=== PATIENT | female | born 1980 | race Caucasian/White ===

== ENCOUNTER 2022-06-24 14:23 | Emergency (ER) | payer SELFPAY ==
[2022-06-24] VITALS (9 sets, daily range): BP systolic 105–141; BP diastolic 67–92; PULSE 74–108; RESP 14–23; TEMP -17.7–36.5; O2SAT 98–100; BMI 24.7
--- NOTE | 2022-06-24 14:26 | CT_ITS ---
We are attempting to reach an attending provider to discuss findings. An addendum with communication details will be sent when the communication is complete. INDICATION: Neuro deficit, acute, stroke suspected EXAMINATION: CT BRAIN WITH CONTRAST TECHNIQUE: Noncontrast axial images were obtained of the brain. Subsequently, routine carotid CT angiogram protocol was performed without and with IV contrast. In addition, images were obtained of the [place]. NASCET criteria using the distal ICAs for comparison were used for evaluation of stenoses. 3D reconstructions were reviewed. A radiation dose optimization technique was used for this scan. IV Contrast dosage and agent: COMPARISON: None. FINDINGS: --CT BRAIN: BRAIN PARENCHYMA: No intra- or extra-axial hemorrhage. No evidence of acute infarct. No intracranial mass or mass effect. There is preservation of the vidales/white matter interface. Posterior fossa structures are unremarkable. CSF SPACES: Appropriate for age. No hydrocephalus. Basal cisterns are patent. CALVARIUM, SKULL BASE, PARANASAL SINUSES AND MASTOID AIR CELLS: Clear. No discrete lytic or blastic abnormalities. ASPECTS Score for Acute Strokes: 10 --CTA NECK: AORTIC ARCH AND BRANCHES: Normal anatomy, patent. RIGHT CCA: No occlusion, significant stenosis or dissection. RIGHT ICA: No occlusion, significant stenosis or dissection. LEFT CCA: No occlusion, significant stenosis or dissection. LEFT ICA: No occlusion, significant stenosis or dissection. RIGHT VERTEBRAL ARTERY: No occlusion, significant stenosis or dissection. LEFT VERTEBRAL ARTERY: No occlusion, significant stenosis or dissection. NECK SOFT TISSUES: Unremarkable. --CTA HEAD: --Anterior circulation: ICAs: No significant stenosis at the intracranial/visualized segments. ACAs: No significant stenosis at the visualized segments. ACOM: Present. MCAs: No significant stenosis at the visualized segments. --Posterior circulation: PCOMs: Within normal limits insurance office supervisor: No significant stenosis at the visualized segments. BASILAR ARTERY: No significant stenosis. VERTEBRAL ARTERIES: No significant stenosis at the intradural/visualized segments. No evidence of intracranial aneurysm or vascular malformation. CT/STROKE CTA Head AND Neck W/Con IMPRESSION: Within normal limits CT Brain, CTA Carotid, and CTA Brain. Electronically Signed: Shyann Parker MD at 15:01 EDT ,
--- NOTE | 2022-06-24 14:26 | CT_ITS ---
INDICATION: Neuro deficit, acute, stroke suspected EXAMINATION: CT BRAIN - CT Head Stroke Protocol W/O Contrast Injection TECHNIQUE: Multiple axial images were obtained of the head without intravenous contrast. A radiation dose optimization technique was used for this scan. IV Contrast dosage and agent: None. RADIATION DOSAGE (If Supplied By Facility): CTDIvol = ( ) mGy, DLP = ( ) mGycm COMPARISON: FINDINGS: BRAIN PARENCHYMA: No intra- or extra-axial hemorrhage. No evidence of acute infarct. No intracranial mass or mass effect. There is preservation of the vidales/white matter interface. Posterior fossa structures are unremarkable. CSF SPACES: Appropriate for age. No hydrocephalus. Basal cisterns are patent. CALVARIUM, SKULL BASE, PARANASAL SINUSES AND MASTOID AIR CELLS: Clear. No discrete lytic or blastic abnormalities. ORBITS: Both globes, extraocular muscles, optic nerves and retrobulbar fat appear unremarkable. ASPECTS Score for Acute Strokes: 10 CT/STROKE Brain/Head without Cont IMPRESSION: No acute intracranial process. High within the celiac head CT demonstrates no acute intracranial process N.B. : The above Results were Read Back by Shyann Parker MD to Rivas Le DO, and understanding confirmed on 06/24/2022 14:47:21 (ET). Electronically Signed: Shyann Parker MD at 14:48 EDT ,
--- NOTE | 2022-06-24 14:26 | EKG12_ITS ---
Test Reason : Blood Pressure : / mmHG Vent. Rate : 098 BPM Atrial Rate : 098 BPM P-R Int : 172 ms QRS Dur : 078 ms QT Int : 366 ms P-R-T Axes : 072 072 060 degrees QTc Int : 467 ms Normal sinus rhythm Nonspecific ST abnormality Abnormal ECG Confirmed by JAYLA MURRAY, ROBSON ([id number]), editor greeting card CHASITY JETT ([id number]) on 06/26/2022 8:12:42 AM Referred By: PARTHA Confirmed By:ROBSON DICKERSON MD
--- NOTE | 2022-06-24 14:28 | EX.ED.DYSGE1 ---
HPI History of Present Illness Chief Complaint: Stroke Alert Detail of Chief Complaint: Right-sided NOBLE/migraine. Stroke alert was called to error on the side. Informant: patient and spouse/S.O. Narrative Narrative: Patient is a 41-year-old female who is presenting to the ER with chief complaint patient's headache was not the worse headache of her life, not sudden onset, not thunderclap in nature., Difficulty/slurred speech, not moving the right arm or leg much. Patient went to [employer]ecost[employer]ism with her , they got back home. Patient was last seen normal at 1 PM. Patient was not initially speaking much when she arrived by EMS, most of the history was given by EMS staff. Stroke alert was called to error on the side of caution, patient was taken to CT for a CT of the head and a CTA of the head neck. While patient was in CT, provided more history, see [facility] for more detail. Patient's had no recent fall, no trauma. Patient does have a history of headaches and migraines, she normally get a headache once every few months. Patient takes no prescribed medications, no blood thinners. Patient had minimal flulike symptoms today, did not go to [employer] when they arrived from a car drive home from [place], patient was dropped off at home and children went to [employer]ec[employer]. They came home around 1:00 and patient was not feeling better, difficulty walking, hyperventilating, numbness and tingling to her arms and legs, EMS was called to the ER in the setting caution. No heart history. No history of diabetes. Patient's sugar was normal for EMS staff. [facility] History no medical history Allergy/AdvReac Type Severity Reaction Status Date / Time No Known Allergies Allergy Verified 06/24/22 14:43 Surgical History no surgical history Social History Smoking Status: Never smoker ROS ROS ED ROS Narrative REVIEW OF SYSTEMS: Unless otherwise stated in this report the patient's positive and negative responses for review of systems for constitutional, eyes, ENT, cardiovascular, respiratory, gastrointestinal, neurological, , musculoskeletal, and integument systems and related systems to the presenting problem are either stated in the history of present illness or were not pertinent or were negative for the symptoms and/or complaints related to the presenting medical problem. EXAM Physical Exam Narrative Exam Narrative: Vital signs reviewed and patient is not hypoxic. General: The patient appears mild to moderate distress secondary to somnolent, hyperventilating, possible strokelike signs and symptoms that seem to already have improved from home to the hospital.. Patient is resting uncomfortably on cart. Not toxic, lethargic, or listless. Skin: Warm, dry, no pallor noted. There is no rash noted. Head: Normocephalic, atraumatic; no tenderness to palpation to bilateral temples. No scalp hematoma. No midline or paracervical tenderness palpation to cervical spine Eye: Normal conjunctiva, no drainage, EOMI. PERRL. Ears, Nose, Mouth, and Throat: oral mucosa is moist. Nares patent. Mouth without vesicles. Ear canals patent. Tm's without Erythema Cardiovascular: Regular Rate and Rhythm, no murmurs, gallops, or rubs Respiratory: Patient is in mild respiratory distress with hyperventilating,, no accessory muscle use, lungs are clear to auscultation, no wheezing, rales or rhonchi Back: non-tender, no CVA tenderness bilaterally to percussion. NO CTLS midline or paracervicl tenderness to palpation. GI: Soft, stretch [place], no tenderness to palpation, no masses appreciated. No rebound, guarding, or rigidity noted. 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 EMS stated the patient was not using her right arm or leg; questionable whether that was effort or true exam. Patient is appearing diffusely weak, Neurological: A&O x4, soft pressured speech. Patient is hyperventilating, effort is poor, difficult to perform true and complete NIH scale initially when patient arrived. Patient knows her name, knows her age and month. Patient is following commands. No facial droop, tongue midline. Patient has carpopedal spasm equal, bilateral. Patient has diffuse weakness in her arms, complaining of muscle spasms arms and legs. No significant signs of slurred speech, facial droop, or expressive aphasia. No garbled speech. Patient is complaining of a headache to the right forehead, behind her right eye that is typical of her headaches and migraines in the past Psychiatric: Cooperative Const Vital Signs: 06/24/22 14:25 06/24/22 14:23 06/24/22 14:44 Temperature 0 F L 97.7 F L Temperature Source Temporal Temporal Pulse Rate 108 H 98 Respiratory Rate 18 21 H Blood Pressure 131/80 H 141/79 H Blood Pressure Mean 97 99 Pulse Ox 100 100 100 Oxygen Delivery Method Nasal Cannula Nasal Cannula Non-Rebreather Oxygen Flow Rate (L/min) 2 2 0 06/24/22 14:45 06/24/22 15:00 06/24/22 15:33 Temperature Temperature Source Pulse Rate 103 H 94 74 Respiratory Rate 21 H 22 H 14 Blood Pressure 133/74 H 135/83 H 126/92 H Blood Pressure Mean 93 100 103 Pulse Ox 100 100 100 Oxygen Delivery Method Room Air Room Air Room Air Oxygen Flow Rate (L/min) 06/24/22 16:28 06/24/22 17:00 Temperature Temperature Source Pulse Rate 77 94 Respiratory Rate 18 22 H Blood Pressure 105/67 116/70 Blood Pressure Mean 79 85 Pulse Ox 100 100 Oxygen Delivery Method Room Air Room Air Oxygen Flow Rate (L/min) MDM MDM Lab Data Labs: Laboratory Results - last 24 hr 06/24/22 06/24/22 06/24/22 14:25 14:25 14:25 WBC 11.1 H RBC 4.72 Hgb 14.6 Hct 41.8 MCV 88.6 MCH 30.9 MCHC 34.9 RDW Std Deviation 38.6 RDW Coeff of [place] 11.9 Plt Count 265 MPV 9.8 Immature Gran % (Auto) 0.300 Neut % (Auto) 74.0 H Lymph % (Auto) 20.3 Elk % (Auto) 4.7 Eos % (Auto) 0.4 Baso % (Auto) 0.3 Absolute Neuts (auto) 8.2 H Absolute Lymphs (auto) 2.25 Nucleated RBC % 0 PT 12.5 INR 0.9 APTT 27.1 Sodium 138 Potassium 2.9 L Chloride 105 Carbon Dioxide 19.0 L Anion Gap 14 BUN 15 Creatinine 1.04 H Estim Creat Clear Calc 72.54 Est GFR (MDRD) Af Amer 75 Est GFR (MDRD) Non-Af 62 BUN/Creatinine Ratio 14.4 Glucose 141 H Lactic Acid Calcium 9.4 Troponin I High Sens < 3 L Serum , Qual 06/24/22 06/24/22 14:45 14:50 WBC RBC Hgb Hct MCV MCH MCHC RDW Std Deviation RDW Coeff of [place] Plt Count MPV Immature Gran % (Auto) Neut % (Auto) Lymph % (Auto) Elk % (Auto) Eos % (Auto) Baso % (Auto) Absolute Neuts (auto) Absolute Lymphs (auto) Nucleated RBC % PT INR APTT Sodium Potassium Chloride Carbon Dioxide Anion Gap BUN Creatinine Estim Creat Clear Calc Est GFR (MDRD) Af Amer Est GFR (MDRD) Non-Af BUN/Creatinine Ratio Glucose Lactic Acid 6.5 H* Calcium Troponin I High Sens Serum , Qual NEGATIVE ABG Data ABG results: ABG 06/24/22 15:14 Specimen Type ARTEMIO VBG pH 7.51 H VBG pO2 36 VBG HCO3 18 L VBG Total CO2 19 L VBG O2 Sat (Calc) 77 H VBG Base Excess -5 L POC Mix VBG pCO2 Pt Tmp 22.8 L Radiography Diagnostic Testing: Clinical Impression(s) from Imaging Studies Brain CT 06/24/22 14:26 IMPRESSION: No acute intracranial process. High within the celiac head CT demonstrates no acute intracranial process N.B. : The above Results were Read Back by Shyann Parker MD to Rivas Le DO, and understanding confirmed on 06/24/2022 14:47:21 (ET). Electronically Signed: Shyann Parker MD at 14:48 EDT , ADDENDUM: 06/24/22 1455 IMPRESSION: No acute intracranial process. High within the celiac head CT demonstrates no acute intracranial process N.B. : The above Results were Read Back by Shyann Parker MD to Rivas Le DO, and understanding confirmed on 06/24/2022 14:47:21 (ET). Electronically Signed: Shyann Parker MD at 14:48 EDT , Head/Neck CTA 06/24/22 14:26 IMPRESSION: Within normal limits CT Brain, CTA Carotid, and CTA Brain. Electronically Signed: Shyann Parker MD at 15:01 EDT , ADDENDUM: 06/24/22 1509 IMPRESSION: Within normal limits CT Brain, CTA Carotid, and CTA Brain. N.B. : The above Results were Read Back by Shyann Parker MD to Rivas Le DO, and understanding confirmed on 06/24/2022 15:02:47 (ET). Electronically Signed: Shyann Parker MD at 15:01 EDT , Chest X-Ray 06/24/22 15:25 IMPRESSION: No radiographic evidence of acute cardiopulmonary disease. Electronically Signed: Shyann Parker MD at 15:39 EDT , EKG Initial EKG: Attestation: I personally reviewed and interpreted this EKG as follows: Comments: EKG interpretation. Normal sinus rhythm at 98 beats minute. Normal axis deviation. No acute ST elevation, no acute ectopy. QTc of 467. Additional Tests and Interventions Additional Tests or Interventions: 1635 patient has been sleeping peacefully. Patient has not been hyperventilating. Patient's headache is improved. Patient's potassium was 2.9. Patient was given oral potassium to drink, also has received IV fluids, also that hyperkalemia could be secondary to a partially hypoventilation as well. Patient will be sent home with prescription for Reglan use if needed. Patient takes no medication at home when she does have headaches or migraines. Patient will follow-up with PCP. Patient has some lab abnormalities secondary to hyperventilating for probably over an hour. Patient does feel better after IV fluids. Patient has been very thankful for help at discharge and throughout her hospital stay. To become more frequently patient will follow-up and establish PCP and neurology if headaches or migraines continue patient will continue supplements and vitamins [id number], patient has no PCP. Stroke alert was initially called, patient is not showing or displaying any signs or symptoms of stroke, it appears to be most likely secondary to hyperventilation syndrome secondary to headache/migraine. Treatment and Re-Evaluation :: is a good source of history. Patient along with and family drove back from [facility] this morning from a family vacation. Patient was dropped off at home around 11:30 AM. Patient stayed home while the and children went to [employer]ecostalism. Family went to [employer]ecost[employer]ism, when he got home around 1 PM, patient stated that she was not feeling well. Patient was having numbness and tingling to arms and legs, called EMS to bring patient to the ER. provided additional history stating that she gets a headache normally every 1 to 2 months, she does have a history of migraines. Is been no trauma. She is on no blood thinners. She has some mild nausea no vomiting. Patient had no falls, no trauma, no other concerning events on the car ride home or the events in [place]. Patient takes no other medications daily, patient takes [id number] vitamins but nothing prescribed. 1445 patient was reassessed, patient is using both arms, both legs, minimally moving around the bed and discomfort and pain and continuing to hyperventilate. Nonrebreather was placed to 0L. [address] Ariadne Claros; stroke neurologist from [facility]. She stated that since the CT of the head and CTA of the head and neck are negative, patient could be admitted to [facility]. She recommended to hold off on giving Imitrex at this time, she did agree with giving more medication to help with IV migraine medications to help the hyperventilation as well. No other recommendations at this time, patient is not in any type of tPA window, stroke evaluation is unequivocal. Patient was initially given a IV dose of fentanyl and Zofran. Patient's headache improved from 8/10 to a 6/10. Nausea has improved. Patient will be given Reglan, IV fluids, and 1 mg of IV Ativan. Patient was initially placed on a nonrebreather to 0L of flow. Patient Critical Care Time Critical care time (excluding procedures): 30-74 minutes and - (Critical care time 35 minutes exclusive from separate billable procedures that were performed. The following was considered in the determination of critical care but not limited to the level of medical decision making, intensive cardiac and/or respiratory monitoring, frequent vital sign monitoring, ) Discharge Plan Triage Chief Complaint: Stroke Alert ED Provider: Rivas Le Dx/Rx/DC Orders Clinical Impression: Hyperventilation, Dehydration, Acute hypokalemia Instructions: ED Dehydration (Adult), ED Headache Unspecified, ED Hyperventilation Syndrome, ED Hypokalemia Primary Care Provider: Care Physician,No Primary Referrals: Ibeth Jain MD [Med Staff - Active Staff] - Care Physician,No Primary [Primary Care Provider] - Activity Restrictions/Additional Instructions: If headaches or migraines become more frequently, he will need to follow-up and establish PCP, along with neurology as discussed. Increase fluids at home. Increase potassium in your diet in the next 3 to 5 days. Continue your multiple [id number] supplements and vitamins. Disposition Disposition: Home, Self Care
[2022-06-24 14:31] LABS: Absolute Lymphocyte Count 2.25 X10^3/uL (0.83-4.51); Absolute Neutrophil Count 8.2 X10^3/uL (2.0-7.7); Basophil# 0.03 X10^3/uL; Basophil% 0.3 % (0-1); Eosinophil# 0.04 X10^3/uL; Eosinophils% 0.4 % (0-5); Hematocrit 41.8 % (37-47); Hemoglobin 14.6 g/dL (12.0-15.0); Lymphocyte # 2.25 X10^3/ul (0.83-4.51); Lymphocyte % 20.3 % (19-41); Mean Corp Hgb Conc 34.9 g/dL (32-36); Mean Corpuscular Hgb 30.9 pg (27.0-32.0); Mean Corpuscular Volume 88.6 fL (81-99); Mean Platelet Vol. 9.8 fl (6.2-12.0); Monocyte# 0.52 X10^3/uL; Monocyte% 4.7 % (0-10); NRBC Flagged by Analyzer 0 % (0-5); Neutrophil # 8.21 X10^3/uL (2.7-7.7); Platelet Count 265 K/mm3 (150-450); RBC Distribution Width CV 11.9 % (11.6-14.6); RBC Distribution Width SD 38.6 fl (35.1-43.9); Red Blood Count 4.72 M/mm3 (4.2-5.4); White Blood Count 11.1 K/mm3 (4.4-11.0)
[2022-06-24 14:39] LABS: International Normalized Ratio 0.9; Prothrombin Time (Protime)PT. 12.5 SECONDS (11.7-14.9)
[2022-06-24 14:40] LABS: Partial Thromboplast Time 27.1 Seconds (24.1-36.2)
--- NOTE | 2022-06-24 14:47 | ED.RN ---
[facility] CALLED AT [id number]
[2022-06-24] MEDS: 0.9% Normal Saline 1,000 ML 999 ML IV (14:48)
[2022-06-24] MEDS: fentaNYL 100 MCG/2 ML Ampul 25 MCG IV (14:48)
[2022-06-24] MEDS: Ondansetron 4 MG/2 ML Vial IV (14:48)
[2022-06-24 14:49] LABS: Anion Gap 14 (5-15); BUN 15 mg/dL (7-18); BUN/Creat Ratio 14.4 RATIO (10-20); Calcium,Total 9.4 mg/dL (8.5-10.1); Chloride 105 mmol/L (98-107); Creatinine, Serum 1.04 mg/dL (0.55-1.02); EST Glomerular Filtration Rate 62 mL/min (>60); Est Glom Filt Rate - Afr Amer 75 mL/min (>60); Estimated Creatinine Clearance 72.54 ml/min; Glucose 141 mg/dL (74-106); Potassium 2.9 mmol/L (3.5-5.1); Sodium Level 138 mmol/L (136-145); Troponin-I HS < 3 pg/mL (3.0-54.0)
--- NOTE | 2022-06-24 15:06 | ED.RN ---
INITIAL NIH DIFFICULT TO COMPLETE, PT NOT COOPERATIVE, REPEATS 'I'M SCARED, HELP ME, PRAY FOR ME'
[2022-06-24 15:21] LABS: Blood Gas Specimen Type VEN; VBG BASE EXCESS -5 mmol/L (-1.0-3.5); VBG Bicarbonate 18 mmol/L (22-26); VBG PO2 36 mmHg (25-40); VBG SO2 77 % (50-70); VBG TCO2 19 mmol/L (23-33); VBG pCO2 22.8 mmHg (41-51); VBG pH 7.51 (7.32-7.42)
[2022-06-24] MEDS: Ketorolac 15 MG/ML Vial IV (15:22)
[2022-06-24] MEDS: Metoclopramide 10 MG/2 ML Vial IV (15:24)
[2022-06-24] MEDS: LORazepam 2 MG/ML Syringe 1 MG IV (15:24)
--- NOTE | 2022-06-24 15:25 | RAD_ITS ---
INDICATION: Neuro deficit, acute, stroke suspected EXAMINATION/TECHNIQUE: X-RAY - XR Chest 1 View COMPARISON: FINDINGS: LINES/DEVICES: None. LUNGS: No consolidation, edema or effusion. No pneumothorax. MEDIASTINUM AND CARDIOVASCULAR STRUCTURES: Cardiac silhouette not enlarged. Central airways and mediastinal contour are unremarkable. BONES AND SOFT TISSUES: Unremarkable. RAD/Chest 1 View IMPRESSION: No radiographic evidence of acute cardiopulmonary disease. Electronically Signed: Shyann Parker MD at 15:39 EDT ,
[2022-06-24] MEDS: Aspirin 325 MG Tablet PO (15:29)
[2022-06-24 15:33] LABS: Internal QC Validated? YES +Cl - CLEAR BKGD; Pregnancy, Serum, hCG Quali. NEGATIVE Negative
[2022-06-24 15:57] LABS: Lactic Acid 6.5 mmol/L (0.4-1.9)
[2022-06-24] MEDS: Potassium Chloride Oral Soln 20 MEQ/15 ML UDC 80 MEQ PO (16:47)
[2022-06-24 18:52] LABS: Reflex Lactate? Y
== END 2022-06-24 17:39 | disposition home or self-care (01) ==
PROVIDERS: Emergency Provider Emergency Medicine; Visit Provider Emergency Medicine
DX: E86.0 Dehydration (principal); E87.6 Hypokalemia
CPT/HCPCS: 70450; 70496; 70498; 71045; 80048; 82803; 83605; 84484; 84703; 85025; 85610; 85730; 93005; 96361; 96372; 96374; 96375; 99285; J7030; J7040; Q9967; A4216; J2405

== ENCOUNTER 2022-06-26 18:21 | Emergency (ER) | payer SELFPAY ==
[2022-06-26 18:22] VITALS: BP 141/83; PULSE 100; RESP 18; TEMP 36.1; O2SAT 100
[2022-06-26 18:33] VITALS: BMI 24.5
[2022-06-26 18:36] VITALS: BMI 24.5
--- NOTE | 2022-06-26 19:00 | CT_ITS ---
STUDY: CT BRAIN WITHOUT CONTRAST REASON FOR EXAM: Female, 41 years old. Pain RADIATION DOSAGE (If Supplied By Facility): CTDIvol = ( 44.99 ) mGy, DLP = ( 745.49 ) mGycm TECHNIQUE: Transaxial CT imaging of the brain was performed without administration of intravenous contrast material. Individualized dose optimization techniques were used for this CT. COMPARISON: 06/24/2022 FINDINGS: Normal soft tissue structures. Normal calvarium. Normal size ventricles and extra-axial spaces for the patient''s age. Normal white matter tracts of the cerebral hemispheres. Normal basal ganglia and thalami. Normal brainstem. Normal cerebellum. There is no intracranial hemorrhage. There are no findings of an acute ischemic infarction. Normal visualized paranasal sinuses. CT/Brain/Head without Contrast IMPRESSION: Normal unenhanced CT scan of the brain. Electronically Signed: Jose Fishman MD at 19:48 EDT ,
[2022-06-26] MEDS: DiphenhydrAMINE 50 MG/ML Syringe 25 MG IV (19:10)
[2022-06-26] MEDS: 0.9% Normal Saline 1,000 ML 999 ML IV (19:10)
[2022-06-26] MEDS: Metoclopramide 10 MG/2 ML Vial IV (19:10)
[2022-06-26] MEDS: LORazepam 2 MG/ML Syringe 1 MG IV (19:16)
[2022-06-26 19:17] LABS: Absolute Lymphocyte Count 1.28 X10^3/uL (0.83-4.51); Absolute Neutrophil Count 4.4 X10^3/uL (2.0-7.7); Basophil# 0.04 X10^3/uL; Basophil% 0.7 % (0-1); Eosinophil# 0.09 X10^3/uL; Eosinophils% 1.5 % (0-5); Hemoglobin 13.7 g/dL (12.0-15.0); Lymphocyte # 1.28 X10^3/ul (0.83-4.51); Lymphocyte % 20.8 % (19-41); Mean Corp Hgb Conc 34.3 g/dL (32-36); Mean Corpuscular Hgb 30.6 pg (27.0-32.0); Mean Corpuscular Volume 89.5 fL (81-99); Mean Platelet Vol. 9.8 fl (6.2-12.0); Monocyte# 0.35 X10^3/uL; Monocyte% 5.7 % (0-10); NRBC Flagged by Analyzer 0 % (0-5); Neutrophil # 4.38 X10^3/uL (2.7-7.7); Neutrophil % 71.1 % (47-70); Platelet Count 230 K/mm3 (150-450); RBC Distribution Width SD 39.5 fl (35.1-43.9); Red Blood Count 4.47 M/mm3 (4.2-5.4); White Blood Count 6.2 K/mm3 (4.4-11.0)
[2022-06-26 19:29] LABS: Anion Gap 9 (5-15); BUN 11 mg/dL (7-18); BUN/Creat Ratio 13.7 RATIO (10-20); Chloride 106 mmol/L (98-107); EST Glomerular Filtration Rate 84 mL/min (>60); Est Glom Filt Rate - Afr Amer 101 mL/min (>60); Glucose 107 mg/dL (74-106); Potassium 3.8 mmol/L (3.5-5.1); Sodium Level 139 mmol/L (136-145)
--- NOTE | 2022-06-26 20:15 | EX.ED.VIS.HA ---
HPI History of Present Illness Chief Complaint: Headache Informant: patient Onset/Context/Timing Onset: Today Context: Sudden Timing: Continuous Quality -Headache: Positive for Similar Prior Headaches Location: Right side of her head Worsened by: Nothing Relieved by: Nothing Associated Symptoms/Injury Associated Symptoms: Positive for Nausea, Numbness, Tingling, Preceding Aura and Visual Changes; Negative for Fever, Vomiting, Sore Throat, Sinus Pressure or Photophobia Narrative Narrative: Patient presents with headache that began today. Patient states she was seen here 2 days ago with similar headache. Patient was given migraine cocktail which seemed to help. Patient had a full stroke work-up at that time. Head CT and CTA of the head and neck were negative. Patient was found to have a hypokalemia at that time. Patient was feeling better and was discharged home. Patient states today she had some black spots on the right side of her vision and then developed a headache. Patient has had some nausea but has not had any vomiting. Patient does admit to some numbness and tingling in her fingers. Patient also feels like she is hyperventilating. Patient denies any fevers or chills. PFSH PFSH Medical History no medical history no medical history Home Medications metoclopramide HCl 10 mg tablet 10 mg PO Q6H PRN PRN Headache #20 tabs 06/26/22 [Rx Last Taken Unknown] Allergy/AdvReac Type Severity Reaction Status Date / Time No Known Allergies Allergy Verified 06/24/22 14:43 Surgical History no surgical history no surgical history Social History Smoking Status: Never smoker ROS ROS ED Constitutional Constitutional ED: Denies chills or fever(s) Eyes Eyes: Reports change in vision; Denies blurry vision or diplopia ENT ENT ED: Denies rhinorrhea or sore throat Cardiovascular Cardiovascular: Denies chest pain or palpitations Respiratory/Chest Respiratory/Chest: Denies cough or dyspnea Gastrointestinal Gastrointestinal: Reports nausea; Denies vomiting Genitourinary Genitourinary ED: Denies dysuria or hematuria Musculoskeletal Musculoskeletal: Denies back pain or neck pain Integumentary Denies abscess or rash Neurologic Neurologic: Reports headache(s); Denies weakness Allergic/Immunologic Allergic/Immunologic ED: Denies mouth swelling or urticaria EXAM Physical Exam Const Vital Signs: 06/26/22 18:22 06/26/22 20:39 Temperature 97 F L Temperature Source Temporal Pulse Rate 100 Respiratory Rate 18 16 Blood Pressure 141/83 H Blood Pressure Mean 102 Pulse Ox 100 Oxygen Delivery Method Room Air Positive well nourished and well developed General Appearance ED: well developed and NAD HEENT Reports moist mucous membranes Neck supple and no JVD Resp normal respiratory effort and clear to auscultation bilaterally Cardio regular rate, regular rhythm and no murmurs GI normal to inspection, nondistended, normoactive bowel sounds and non-tender Palpation: soft Extremity normal to inspection General Extremety ED: Negative for edema or tenderness General Extremity: Negative for edema Neuro oriented x3, CN's II-XII intact bilaterally and no sensory deficits noted Sensorium / Orientation: awake and alert Motor Exam: strength 5/5 throughout Psych Mood & Affect: anxious Skin no rashes or lesions noted MDM MDM MDM Narrative Medical decision making narrative: Differential diagnosis includes subarachnoid hemorrhage, migraine headache, electrolyte abnormality, anxiety, and cluster headache. CBC will be obtained to assess for leukocytosis and anemia. Basic metabolic profile will be obtained to assess for electrolyte abnormality and renal function. CT scan of the brain will be obtained to assess for intracranial bleeding. Lab Data Attestation: I reviewed the patient's lab results. Lab results narrative: CBC was reviewed and was within normal limits. Basic metabolic profile was reviewed and was within normal limits. Labs: Laboratory Results - last 24 hr 06/26/22 06/26/22 19:10 19:10 WBC 6.2 RBC 4.47 Hgb 13.7 Hct 40.0 MCV 89.5 MCH 30.6 MCHC 34.3 RDW Std Deviation 39.5 RDW Coeff of Toan 12.0 Plt Count 230 MPV 9.8 Immature Gran % (Auto) 0.200 Neut % (Auto) 71.1 H Lymph % (Auto) 20.8 [place] % (Auto) 5.7 Eos % (Auto) 1.5 Baso % (Auto) 0.7 Absolute Neuts (auto) 4.4 Absolute Lymphs (auto) 1.28 Nucleated RBC % 0 Sodium 139 Potassium 3.8 Chloride 106 Carbon Dioxide 24.0 Anion Gap 9 BUN 11 Creatinine 0.80 Estim Creat Clear Calc 94.30 Est GFR (MDRD) Af Amer 101 Est GFR (MDRD) Non-Af 84 BUN/Creatinine Ratio 13.7 Glucose 107 H Calcium 9.0 Radiography Diagnostic Testing: Clinical Impression(s) from Imaging Studies Brain CT 06/26/22 19:00 IMPRESSION: Normal unenhanced CT scan of the brain. Electronically Signed: Jose Fishman MD at 19:48 EDT , CT scan of the brain was obtained. There is no acute intracranial abnormality. This was interpreted by the radiologist and was also independently reviewed by myself. Treatment and Re-Evaluation Narrative: Patient was given IV fluids, Reglan, Benadryl, and Ativan. Patient is feeling better on reevaluation. Patient is resting comfortably. Patient and were advised of the findings. Patient was instructed to rest in a dark quiet room. Patient was given a prescription for Reglan to take as needed. Patient was instructed to follow-up with her primary care physician in 5 to 7 days. Patient was instructed that she may need to see a neurologist to further evaluate these headaches. Patient and understood and were agreeable with the plan. All questions were answered. Discharge Plan Triage Chief Complaint: Headache Other Complaint: Neuro S/Sx ED Provider: Rodolfo Quick Dx/Rx/DC Orders Clinical Impression: Headache Instructions: ED Headache Unspecified Prescriptions: New metoclopramide HCl [metoclopramide HCl] 10 mg tablet 10 mg PO Q6H PRN PRN (Reason: Headache) Qty: 20 0RF Primary Care Provider: Care Physician,No Primary Referrals: Ibeth Jain MD [Med Staff - Active Staff] - 3-5 Days Care Physician,No Primary [Primary Care Provider] - Disposition Disposition: Home, Self Care
[2022-06-26 20:39] VITALS: RESP 16
[2022-06-26 21:41] VITALS: BP 112/77; PULSE 66; RESP 16; O2SAT 95
== END 2022-06-26 21:50 | disposition home or self-care (01) ==
PROVIDERS: Emergency Provider Emergency Medicine; Visit Provider Emergency Medicine
DX: R51.9 Headache, unspecified (principal); R11.0 Nausea
CPT/HCPCS: 70450; 80048; 85025; 96361; 96374; 96375; 99282; J7030; A4216

== ENCOUNTER 2022-06-30 15:09 | Emergency (ER) | payer OTHER, SELFPAY ==
[2022-06-30 15:10] VITALS: BP 143/127; PULSE 82; RESP 18; TEMP 36.3; O2SAT 100
--- NOTE | 2022-06-30 15:54 | ED.RN ---
[facility] TRANSFER LINE CONTACTED PER DR. CLANCY REQUEST.
--- NOTE | 2022-06-30 15:57 | EX.ED.VIS.HA ---
HPI History of Present Illness Chief Complaint: Dizziness Informant: patient and spouse/S.O. Narrative Narrative: Presenting recurrent right-sided frontal headache nausea and dry heaving. States generalized weakness and paresthesias to the fingers and toes. Recurred today. Patient has symptoms seen a week ago in the ED she returned on Saturday here. She was worked up with 2 CT scans per spouse and negative. She felt better she went home however went to [facility] on [address] She was admitted to the hospital she had a lumbar puncture due to recent travel to [facility] in [place]. Reported infect disease cleared her for infection. Reported the neck step was for an MRI of the brain which would have been done today however patient felt well yesterday wanted go home to her 6 children. She was discharged with sumatriptan, she took a dose at 2 PM with no relief. She had relief of symptoms with IV medicines of Reglan Benadryl and Ativan in the past. Denies any head trauma. Reviewing records, she was seen on Saturday headache had transient right-sided weakness a stroke initially was worked up at that time and negative. She felt better and went home. She seen for headaches on Saturday treated with migraine cocktail with improvement. Prior similar symptoms: Yes PFSH PFSH Home Medications metoclopramide HCl 10 mg tablet 10 mg PO Q6H PRN PRN Headache #20 tabs 06/26/22 [Rx Last Taken Unknown] Allergy/AdvReac Type Severity Reaction Status Date / Time No Known Allergies Allergy Verified 06/30/22 15:10 Social History Smoking Status: Never smoker ROS ROS ED Constitutional Constitutional ED: Denies chills, fever(s) or sweats Eyes Eyes: Denies change in vision ENT ENT ED: Denies dysphagia or sore throat Cardiovascular Cardiovascular: Denies chest pain, leg edema, palpitations or racing heartbeat Respiratory/Chest Respiratory/Chest: Denies cough, dyspnea or dyspnea on exertion Gastrointestinal Gastrointestinal: Reports nausea; Denies abdominal pain, diarrhea or vomiting Genitourinary Genitourinary ED: Denies dysuria, hematuria or urinary frequency Musculoskeletal Musculoskeletal: Denies back pain, extremity pain or neck pain Integumentary Denies rash or wounds Neurologic Neurologic: Reports headache(s), paresthesias and weakness EXAM Physical Exam Const Vital Signs: 06/30/22 15:10 06/30/22 16:12 06/30/22 16:33 Temperature 97.4 F L Temperature Source Temporal Pulse Rate 82 67 72 Respiratory Rate 18 16 16 Respiratory Pattern Blood Pressure 143/127 H 121/83 H 121/83 H Blood Pressure Mean 132 95 95 Pulse Ox 100 100 100 Oxygen Delivery Method Room Air Room Air Room Air 06/30/22 16:35 Temperature Temperature Source Pulse Rate Respiratory Rate Respiratory Pattern Normal Blood Pressure Blood Pressure Mean Pulse Ox Oxygen Delivery Method Positive well nourished Constitutional Narrative: Fatigued looking, nontoxic, no airway compromise HEENT Reports moist mucous membranes normocephalic and atraumatic Eyes PERRL, EOMs intact bilaterally and conjunctivae normal General Eye ED: Yes normal appearance of both eyes Neck no lymphadenopathy and supple Neck Narrative: No meningismus General: Negative for tenderness Chest Wall Chest: Negative for tenderness Resp normal respiratory effort and normal air movement Effort and Inspection: symmetric chest movement; Negative for respiratory distress Cardio regular rate, regular rhythm and no murmurs Peripheral Pulses: pulses 2+ throughout GI normal to inspection, nondistended, normoactive bowel sounds and non-tender Palpation: Negative for guarding or rebound tenderness present Back/Spine no CVA tenderness and no thoracic nor lumbar tenderness Extremity Extremity Narrative: Slight contractures of the right hand reports cramping. General Extremety ED: Negative for edema or tenderness General Extremity: Negative for edema Neuro oriented x3, CN's II-XII intact bilaterally and no sensory deficits noted Sensorium / Orientation: awake and alert Skin no rashes or lesions noted and no wounds MDM MDM MDM Narrative Medical decision making narrative: Interventions / MDM: Differential diagnosis: Posterior circulation strokes, multiple sclerosis Diagnosis considered but do not suspect: Guillian Houston syndrome, no progressive paresthesias My EKG interpretation: N/A Imaging independently reviewed and interpreted by myself: N/A External documents reviewed: Reviewed ED visit from the seventh and the ninth with stroke work-ups from CT scan. Symptomatically improved with medication treatments. Test considered but not ordered:N/A ED course: Patient presented recurrent neurological symptoms increasing weakness paresthesias hands and feet, does not progressed upward for concerns for Guillain-Mondragon?. Recurrent symptoms, did not want a repeat CT scan as 3 has already been done. I agree that MRI study of the brain will be required however not emergently at this time. Patient NIH is a 0, no meningismus. History with lumbar puncture [facility] that was negative for infectious work-up. Unclear if seen by neurology. With paresthesias recurrent symptoms and weakness, multiple sclerosis in the differential. She has no family history of this. Discussed symptomatic treatment with medications which helped in the past Reglan Benadryl and Ativan. Given fluids. Labs were checked. After evaluation I did reach out [facility] transfer line for discussion of patient's recent history and work-up. Re-evaluation: 1700: Patient more comfortable, still fatigued, no focal deficits. Labs are stable. Transfer line [facility] called back patient accepted to hospital service of Dr. Mckinney. Patient is sent and father updated. Disposition discussed with patient/family/significant other: Patient and spouse Case discussed with consulting clinician: [facility] transfer line Lab Data Attestation: I reviewed the patient's lab results. Labs: Laboratory Results - last 24 hr 06/30/22 06/30/22 16:10 16:10 WBC 10.0 RBC 4.96 Hgb 15.2 H Hct 43.9 MCV 88.5 MCH 30.6 MCHC 34.6 RDW Std Deviation 38.0 RDW Coeff of Toan 11.9 Plt Count 255 MPV 10.8 Immature Gran % (Auto) 0.300 Neut % (Auto) 84.4 H Lymph % (Auto) 9.4 L [place] % (Auto) 5.4 Eos % (Auto) 0.2 Baso % (Auto) 0.3 Absolute Neuts (auto) 8.5 H Absolute Lymphs (auto) 0.94 Nucleated RBC % 0 Sodium 137 Potassium 3.8 Chloride 106 Carbon Dioxide 19.0 L Anion Gap 12 BUN 17 Creatinine 1.14 H Estim Creat Clear Calc 66.17 Est GFR (MDRD) Af Amer 68 Est GFR (MDRD) Non-Af 56 L BUN/Creatinine Ratio 14.9 Glucose 92 Calcium 9.6 Critical Care Time Critical Care Time: Yes Critical care time (excluding procedures): 30-74 minutes, Discussing w/Patient &/or Family/Customer Security Clerk, Discussing w/Consultants, Arranging Admission or Transfer, Performing Direct Patient Care at Bedside and - (30 minutes) Discharge Plan Triage Chief Complaint: Dizziness Other Complaint: Headache ED Provider: Natanael Shaw Dx/Rx/DC Orders Clinical Impression: Headache, Paresthesia, Weakness Prescriptions: No Action metoclopramide HCl [metoclopramide HCl] 10 mg tablet 10 mg PO Q6H PRN PRN (Reason: Headache) Qty: 20 0RF Primary Care Provider: Care Physician,No Primary Referrals: Care Physician,No Primary [Primary Care Provider] - Disposition Disposition: DC/Tx to Another Type of HCF
[2022-06-30] MEDS: 0.9% Normal Saline 1,000 ML 1000 ML IV (16:07)
[2022-06-30] MEDS: LORazepam 2 MG/ML Syringe 0.5 MG IV (16:07)
[2022-06-30] MEDS: Metoclopramide 10 MG/2 ML Vial 5 MG IV (16:08)
[2022-06-30] MEDS: DiphenhydrAMINE 50 MG/ML Syringe 12.5 MG IV (16:09)
[2022-06-30 16:12] VITALS: BP 121/83; PULSE 67; RESP 16; O2SAT 100; BMI 29.6
[2022-06-30 16:27] LABS: Absolute Lymphocyte Count 0.94 X10^3/uL (0.83-4.51); Absolute Neutrophil Count 8.5 X10^3/uL (2.0-7.7); Basophil# 0.03 X10^3/uL; Basophil% 0.3 % (0-1); Eosinophil# 0.02 X10^3/uL; Eosinophils% 0.2 % (0-5); Hematocrit 43.9 % (37-47); Hemoglobin 15.2 g/dL (12.0-15.0); Lymphocyte # 0.94 X10^3/ul (0.83-4.51); Lymphocyte % 9.4 % (19-41); Mean Corp Hgb Conc 34.6 g/dL (32-36); Mean Corpuscular Hgb 30.6 pg (27.0-32.0); Mean Corpuscular Volume 88.5 fL (81-99); Mean Platelet Vol. 10.8 fl (6.2-12.0); Monocyte# 0.54 X10^3/uL; Monocyte% 5.4 % (0-10); NRBC Flagged by Analyzer 0 % (0-5); Neutrophil # 8.45 X10^3/uL (2.7-7.7); Neutrophil % 84.4 % (47-70); Platelet Count 255 K/mm3 (150-450); RBC Distribution Width CV 11.9 % (11.6-14.6); Red Blood Count 4.96 M/mm3 (4.2-5.4)
[2022-06-30 16:33] VITALS: BP 121/83; PULSE 72; RESP 16; O2SAT 100
[2022-06-30 16:54] LABS: Anion Gap 12 (5-15); BUN 17 mg/dL (7-18); BUN/Creat Ratio 14.9 RATIO (10-20); Calcium,Total 9.6 mg/dL (8.5-10.1); Chloride 106 mmol/L (98-107); Creatinine, Serum 1.14 mg/dL (0.55-1.02); EST Glomerular Filtration Rate 56 mL/min (>60); Est Glom Filt Rate - Afr Amer 68 mL/min (>60); Estimated Creatinine Clearance 66.17 ml/min; Glucose 92 mg/dL (74-106); Potassium 3.8 mmol/L (3.5-5.1); Sodium Level 137 mmol/L (136-145)
[2022-06-30 18:00] VITALS: BP 102/68; PULSE 69; RESP 16; O2SAT 100
[2022-06-30 18:12] VITALS: BP 102/68; PULSE 69; RESP 16; O2SAT 100
--- NOTE | 2022-06-30 19:57 | NURSING ---
CALLED [facility], ETA IS ABOUT ANOTHER HOUR
== END 2022-06-30 20:56 | disposition other institution (70) ==
PROVIDERS: Emergency Provider Emergency Medicine; Visit Provider Emergency Medicine
DX: R42 Dizziness and giddiness (principal); G35 Multiple sclerosis; R53.1 Weakness; R20.2 Paresthesia of skin; R51.9 Headache, unspecified
CPT/HCPCS: 80048; 85025; 96361; 96374; 96375; 99285; J7030; A4216